=== PATIENT | female | born 1965 | race Caucasian/White ===

== ENCOUNTER 2023-04-03 05:39 | Inpatient (IN) ==
[~2023-04-03 05:39] MED LIST: Naloxone 0.4 mg VIAL 0.4 mg/ml 1 ml VIAL IV PRN; Ondansetron 4 mg VIAL 2 MG/ML 2 ml VIAL IV PRN; fentaNYL 100 mcg/2 ml 50 MCG/ML VIAL IV PRN; oxyCODONE/Acetamin 5/325 mg TAB PO PRN
[2023-04-03] MEDS ORDERED: Lactated Ringers 1000 ml BAG 1,000 ML IV SCH (06:00)
[2023-04-03] MEDS ORDERED: Buffered Lidocaine 1% SYRIN 1 ml INTRADERM ONE (06:00)
[2023-04-03] MEDS ORDERED: Clindamycin 900 MG/50 **NS BAG 900 MG/50 ML BAG ONE (06:19)
[2023-04-03 06:55] LABS: Rapid COVID-19 Molecular Undetected (Undetected)
[2023-04-03] MEDS ORDERED: ROPIVACAINE 5 MG/ML 30 ML BTL (0.5%) ONE ×2 (06:59→07:11)
[2023-04-03] MEDS ORDERED: fentaNYL 100 mcg/2 ml 50 MCG/ML VIAL ONE ×2 (07:08→07:09)
[2023-04-03] MEDS ORDERED: Midazolam 2 mg/2 ml VIAL 1 mg/ml 2 ml VIAL (2 mg) ONE (07:08)
[2023-04-03] MEDS ORDERED: Propofol 10 MG/ML 20 ML BTL ONE ×3 (07:09→09:43)
[2023-04-03] MEDS ORDERED: Ondansetron 4 mg VIAL 2 MG/ML 2 ml VIAL IV PRN (07:22)
[2023-04-03] MEDS ORDERED: Lactulose 30 ml UDC PO PRN (07:22)
[2023-04-03] MEDS ORDERED: Ondansetron ODT 4 mg TAB 4 MG TAB PO PRN (07:22)
[2023-04-03] MEDS ORDERED: Magnesium Hydroxide LIQ 30 ML UDC PO PRN (07:22)
[2023-04-03] MEDS ORDERED: Labetalol IV 5 MG/ML 20 ml VIAL ONE (07:45)
[2023-04-03] MEDS ORDERED: ceFAZolin 1 GM ADVAN 1 GM in NS 0.9% 50 ML 50 ML IVPB SCH ×2 (08:00→16:00)
[2023-04-03] MEDS ORDERED: Acetaminophen IV 1 GM/100ML 1,000 MG/100 ML BAG IV ONE (09:24)
[2023-04-03] MEDS: Magnesium Hydroxide LIQ 30 ML UDC PO SCH ×2 (09:50→20:11)
[2023-04-03] MEDS: Vitamin THERAPEUTIC TAB PO SCH (09:51)
[2023-04-03] MEDS ORDERED: Dextrose 50% Syringe 50 ml 25 GM/50 ML SYRINGE IV PUSH PRN (10:24)
[2023-04-03] MEDS ORDERED: Magnesium Sulfate IV 1GM/100ML 1 GM/100 ML BAG IV ONE (11:14)
[2023-04-03] MEDS ORDERED: Lidocaine 2% PF 5 ML VIAL ONE (11:29)
[2023-04-03] MEDS: Lactated Ringers 1000 ml BAG 1,000 ML IV SCH ×2 (11:44→22:42)
[2023-04-03] MEDS: Morphine 2 MG/ML SYRINGE IV PRN (12:17)
[2023-04-03] MEDS: Clindamycin 600 MG/D5W BAG 600 MG/50 ML BAG IV SCH (17:20)
[2023-04-04] MEDS: Clindamycin 600 MG/D5W BAG 600 MG/50 ML BAG IV SCH ×2 (00:54→08:46)
[2023-04-04] MEDS: Morphine 2 MG/ML SYRINGE IV PRN (05:58)
[2023-04-04 06:23] LABS: Hematocrit 29.1 % (35-45); Hemoglobin 9.8 g/dL (11.5-14.3); Mean Platelet Volume 8.5 fL (7.5-11.2); Platelet Count 223 10^3/uL (150-450)
[2023-04-04 06:37] LABS: Calcium 8.7 mg/dL (8.6-10.3); Creatinine, Serum 1.08 mg/dL (0.51-0.95); Potassium 4.4 mmol/L (3.5-5.0); eGFR CKD-EPI 59.2 (>60)
[2023-04-04] MEDS: Vitamin THERAPEUTIC TAB PO SCH (08:50)
[2023-04-04] MEDS ORDERED: Insulin GLARGINE 100 un/ml 10 ml VIAL SUBCUT SCH (09:00)
[2023-04-04] MEDS: Magnesium Hydroxide LIQ 30 ML UDC PO SCH (10:57)
== END 2023-04-04 13:15 | disposition home or self-care (01) | DRG 302 ==
LOC: AA 05:39 → INTOOBSV 07:22 → EDSEX 09:30 → EDUNIT# 09:30 → SSU 11:26
PROVIDERS: ADMIT Orthopaedic Surgery Adult Reconstructive Orthopaedic Surgery; ATTEND Orthopaedic Surgery Adult Reconstructive Orthopaedic Surgery

== ENCOUNTER 2023-10-09 07:30 | Inpatient (IN) ==
[~2023-10-09 07:30] MED LIST changes: +HYDROmorphone 1 MG/1 ML SYRINGE IV PRN; -fentaNYL 100 mcg/2 ml 50 MCG/ML VIAL IV PRN; -oxyCODONE/Acetamin 5/325 mg TAB PO PRN
[2023-10-09] MEDS ORDERED: Propofol 10 MG/ML 20 ML BTL ONE ×2 (10:38→14:44)
[2023-10-09] MEDS ORDERED: Lidocaine 2% PF 5 ML VIAL ONE (10:38)
[2023-10-09] MEDS ORDERED: Ondansetron 4 mg VIAL 2 MG/ML 2 ml VIAL ONE (10:38)
[2023-10-09] MEDS ORDERED: fentaNYL 100 mcg/2 ml 50 MCG/ML VIAL ONE ×3 (10:39→17:01)
[2023-10-09] MEDS ORDERED: Midazolam 2 mg/2 ml VIAL 1 mg/ml 2 ml VIAL (2 mg) ONE (10:39)
[2023-10-09] MEDS ORDERED: Buffered Lidocaine 1% SYRIN 1 ml ONE (10:50)
[2023-10-09] MEDS ORDERED: ceFAZolin *3* GM in NS PREMIX 0 GM/0 ML BAG IV ONE (10:50)
[2023-10-09] MEDS ORDERED: Tranexamic Acid 1 GM/100ML BAG 2,000 MG/200 ML BAG IV ONE (10:51)
[2023-10-09 11:00] LABS: Rapid COVID-19 Molecular Undetected (Undetected)
[2023-10-09 11:08] LABS: INR 1.03 (0.83-1.13)
[2023-10-09] MEDS ORDERED: Buffered Lidocaine 1% SYRIN 1 ml INTRADERM ONE (11:11)
[2023-10-09] MEDS ORDERED: Clindamycin 900 MG/50 **NS BAG 900 MG/50 ML BAG ONE (11:50)
[2023-10-09] MEDS ORDERED: Lactated Ringers 1000 ml BAG 1,000 ML IV SCH ×2 (12:00→15:00)
[2023-10-09] MEDS ORDERED: hydrALAZINE 20 mg/ml 1 ML Vial IV ONE (12:17)
[2023-10-09] MEDS ORDERED: ROPIVACAINE 5 MG/ML 30 ML BTL (0.5%) ONE (12:56)
[2023-10-09] MEDS ORDERED: Ondansetron 4 mg VIAL 2 MG/ML 2 ml VIAL IV PRN (14:17)
[2023-10-09] MEDS ORDERED: Morphine 2 MG/ML SYRINGE IV PRN (14:17)
[2023-10-09] MEDS ORDERED: Ondansetron ODT 4 mg TAB 4 MG TAB PO PRN (14:17)
[2023-10-09] MEDS ORDERED: Lactulose 30 ml UDC PO PRN (14:17)
[2023-10-09] MEDS ORDERED: Magnesium Hydroxide LIQ 30 ML UDC PO PRN (14:17)
[2023-10-09] MEDS ORDERED: HYDROmorphone 1 MG/1 ML SYRINGE ONE ×2 (15:50→17:24)
[2023-10-09] MEDS: fentaNYL 100 mcg/2 ml 50 MCG/ML VIAL IV PRN ×5 (16:00→17:07)
[2023-10-09] MEDS ORDERED: Dextrose 50% Syringe 50 ml 25 GM/50 ML SYRINGE IV PUSH PRN (17:06)
[2023-10-09] MEDS ORDERED: HYDROmorphone 0.5 MG/0.5 ML SYRINGE IV SLOW PU ONE (17:34)
[2023-10-09] MEDS ORDERED: Labetalol IV 5 MG/ML 20 ml VIAL ONE (17:57)
[2023-10-09] MEDS: Labetalol IV 5 MG/ML 20 ml VIAL IV PUSH ONE ×2 (17:58→18:29)
[2023-10-09] MEDS ORDERED: Acetaminophen IV 1 GM/100ML 1,000 MG/100 ML BAG IV ONE ×2 (18:22→18:23)
[2023-10-09] MEDS ORDERED: hydrALAZINE 20 mg/ml 1 ML Vial IV IV SLOW PU PRN (18:30)
[2023-10-09] MEDS ORDERED: Dexmedetomidine 200 mcg/2 ml 2 ml VIAL (200 mcg) ONE (18:38)
[2023-10-09] MEDS: Morphine ER 15 mg TAB ** extended release PO SCH (20:33)
[2023-10-09] MEDS: Potassium Chlor 10 meq TAB PO SCH (20:37)
[2023-10-09] MEDS: Magnesium Hydroxide LIQ 30 ML UDC PO SCH (20:38)
[2023-10-09] MEDS ORDERED: ceFAZolin 1 GM ADVAN 1 GM in NS 0.9% 50 ML 50 ML IVPB SCH (22:00)
[2023-10-10] MEDS: Clindamycin 900 MG/D5W BAG 900 MG/50 ML BAG IVPB SCH ×3 (00:50→15:54)
[2023-10-10] MEDS ORDERED: Vitamin THERAPEUTIC TAB PO SCH (09:00)
[2023-10-10] MEDS: Potassium Chlor 10 meq TAB PO SCH (10:11)
[2023-10-10] MEDS: Morphine ER 15 mg TAB ** extended release PO SCH (10:12)
[2023-10-10] MEDS: Magnesium Hydroxide LIQ 30 ML UDC PO SCH (10:13)
[2023-10-10 10:59] LABS: Hematocrit 30.7 % (35-45); Hemoglobin 10.5 g/dL (11.5-14.3); Mean Platelet Volume 8.8 fL (7.5-11.2); Platelet Count 252 10^3/uL (150-450)
[2023-10-10 11:33] LABS: Calcium 8.9 mg/dL (8.6-10.3); Creatinine, Serum 1.36 mg/dL (0.51-0.95); Potassium 4.8 mmol/L (3.5-5.0); eGFR CKD-EPI 44.6 (>60)
[2023-10-10 14:09] VITALS: BP 142/64
== END 2023-10-10 17:15 | disposition home or self-care (01) | DRG 302 ==
LOC: AA 10:13 → SSU 19:50
PROVIDERS: ADMIT Orthopaedic Surgery Adult Reconstructive Orthopaedic Surgery; ATTEND Orthopaedic Surgery Adult Reconstructive Orthopaedic Surgery